=== PATIENT | female | born 1970 | race Caucasian/White ===

== ENCOUNTER → 2017-01-05 | Day surgery (SDC) | payer BC ==
[~2017-01-05] MED LIST: Lactated Ringers 500 ML IV SCH; Propofol 200 MG/20 ML SDV IV ONE
[2017-01-05 14:50] VITALS: BP 108/71
--- NOTE | 2017-01-08 09:01 | OR ---
DATE OF OPERATION: 01/05/2017 PREOPERATIVE DIAGNOSIS: GASTROESOPHAGEAL REFLUX DISEASE. POSTOPERATIVE DIAGNOSIS: GASTROESOPHAGEAL REFLUX DISEASE. SURGEON: Luiz Payne MD PROCEDURE: EGD WITH AMARILIS. 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 COMPLICATIONS: None. SPECIMEN: Antral AMARILIS. FINDINGS: 1. Full-length EGD. 2. Spontaneous reflux without esophagitis, stricturing, ulceration, or Tarango's changes. 3. No signs of hiatal hernia. RECOMMENDATIONS: Medical followup for appropriate cares. INDICATIONS: The patient has a long-standing history of reflux. Lately, she has been having worsening of symptoms. Vianey Coles send her for EGD. DESCRIPTION OF PROCEDURE: The patient was prepped and draped, placed in the left lateral decubitus position. A lubricated Olympus gastroscope was inserted over a bit and advanced to cricopharyngeus area and easily intubated into the esophagus. Esophageal lining was benign in its entire course. The Z-line was crisp and sharp around 36 cm. There was no obvious hiatal hernia seen although there was some spontaneous reflux. No signs of any distal esophagitis, stricturing, ulceration, or Tarango's changes. The scope was advanced into the stomach through the pylorus into the second portion of the duodenum. This in the duodenal bulb were completely benign. The scope was brought back into the stomach and retroflexed. There were no obvious hernia visualized from below. Upper fundus and cardia appeared benign. The scope was straightened. A thorough evaluation of the rest of the fundus and antrum were unremarkable. A CLOtest was obtained. Air was suctioned. Scope was removed without complication. DAVE/PHYLLIS /[id number]
== END ==
LOC: CC.SDS 13:08
PROVIDERS: ATTEND Family Medicine
DX: K21.9 Gastro-esophageal reflux disease without esophagitis (principal); E78.5 Hyperlipidemia, unspecified; E04.1 Nontoxic single thyroid nodule; Z88.0 Allergy status to penicillin; Z88.1 Allergy status to other antibiotic agents; Z88.8 Allergy status to other drugs, medicaments and biological substances; Z87.19 Personal history of other diseases of the digestive system; Z79.899 Other long term (current) drug therapy; Z98.51 Tubal ligation status; Z87.891 Personal history of nicotine dependence
CPT/HCPCS: 43239; 87081; J2704; J7120

== ENCOUNTER → 2021-03-25 | Day surgery (SDC) | payer BC ==
[~2021-03-25] MED LIST changes: +Ketamine 200 MG/20 ML MDV ONE; +Lactated Ringers 1,000 ML IV SCH; -Lactated Ringers 500 ML IV SCH; -Propofol 200 MG/20 ML SDV IV ONE; +Propofol 200 MG/20 ML SDV ONE; +fentaNYL 100 MCG/2 ML SDV ONE
[2021-03-25 13:43] VITALS: BP 125/78; PULSE 67
== END ==
LOC: CC.SDS 11:26
PROVIDERS: ATTEND Family Medicine
DX: Z12.11 Encounter for screening for malignant neoplasm of colon (principal); H91.92 Unspecified hearing loss, left ear; Z80.0 Family history of malignant neoplasm of digestive organs; Z88.0 Allergy status to penicillin; Z88.1 Allergy status to other antibiotic agents; Z79.899 Other long term (current) drug therapy; Z98.890 Other specified postprocedural states; Z87.891 Personal history of nicotine dependence
CPT/HCPCS: J2704; J3010; J7120

== ENCOUNTER 2023-11-30 09:28 | Day surgery (SDC) | payer BC ==
[~2023-11-30 09:28] MED LIST changes: -Ketamine 200 MG/20 ML MDV ONE; -Propofol 200 MG/20 ML SDV ONE; -fentaNYL 100 MCG/2 ML SDV ONE
[2023-11-30] MEDS ORDERED: fentaNYL 50 MCG/ML SDV ONE (09:50)
[2023-11-30] MEDS ORDERED: Ketamine 200 MG/20 ML MDV ONE (09:50)
[2023-11-30] MEDS ORDERED: Lidocaine 2% 20 ML MDV ONE (09:50)
[2023-11-30] MEDS ORDERED: Propofol 200 MG/20 ML SDV ONE (09:50)
[2023-11-30 11:00] VITALS: BP 104/68; PULSE 60
== END 2023-11-30 10:58 | disposition home or self-care (01) ==
LOC: CC.SDS 09:28
PROVIDERS: ATTEND Family Medicine
DX: R13.10 Dysphagia, unspecified (principal); K21.9 Gastro-esophageal reflux disease without esophagitis; E78.5 Hyperlipidemia, unspecified; Z88.7 Allergy status to serum and vaccine; Z88.1 Allergy status to other antibiotic agents; Z88.0 Allergy status to penicillin; Z79.899 Other long term (current) drug therapy; Z87.891 Personal history of nicotine dependence
CPT/HCPCS: 00731; 87081; J2704; J3010; J3490